=== PATIENT | female | born 1995 | race Caucasian/White ===

== ENCOUNTER 2021-03-09 14:14 | Emergency (ER) | payer MEDICAID, SELFPAY ==
--- NOTE | ~2021-03-09 | XR_ITS ---
EXAMINATION: THORACIC AND LUMBAR SPINE CLINICAL INFORMATION: Status post OD found at gas station with back pain COMPARISON: None TECHNIQUE: Thoracic spine 3 views. Lumbar spine 3 views. FINDINGS: DORSAL SPINE: There is normal thoracic kyphosis. The vertebral heights, alignment and disc heights are normal. There is no visible acute fracture, dislocation or lytic process seen. The paravertebral soft tissues are normal. LUMBAR SPINE: There is normal lumbar lordosis. There is grade 1 retrolisthesis L4-L5. Rest the vertebral alignment is normal. The vertebral heights and disc heights are normal. There is no visible acute fracture, dislocation or lytic process. The paravertebral soft tissues are normal. SI joints are symmetrical and normal. XR/XR thoracic spine 3V IMPRESSION: Unremarkable dorsal spine exam. Grade 1 retrolisthesis L4 over L5. No visible acute fracture or dislocation seen.
--- NOTE | ~2021-03-09 | XR_ITS ---
EXAMINATION: THORACIC AND LUMBAR SPINE CLINICAL INFORMATION: Status post OD found at gas station with back pain COMPARISON: None TECHNIQUE: Thoracic spine 3 views. Lumbar spine 3 views. FINDINGS: DORSAL SPINE: There is normal thoracic kyphosis. The vertebral heights, alignment and disc heights are normal. There is no visible acute fracture, dislocation or lytic process seen. The paravertebral soft tissues are normal. LUMBAR SPINE: There is normal lumbar lordosis. There is grade 1 retrolisthesis L4-L5. Rest the vertebral alignment is normal. The vertebral heights and disc heights are normal. There is no visible acute fracture, dislocation or lytic process. The paravertebral soft tissues are normal. SI joints are symmetrical and normal. XR/XR lumbar spine 2-3V IMPRESSION: Unremarkable dorsal spine exam. Grade 1 retrolisthesis L4 over L5. No visible acute fracture or dislocation seen.
--- NOTE | ~2021-03-09 | XR_ITS ---
EXAMINATION: XR CHEST CLINICAL INFORMATION: Overdose. COMPARISON: None TECHNIQUE: Frontal view of the chest was obtained. 8:34 PM FINDINGS: No significant abnormality is noted involving the heart, lungs, mediastinum, bony thorax or soft tissues. XR/XR chest 1V IMPRESSION: Unremarkable examination.
--- NOTE | ~2021-03-09 | CT_ITS ---
EXAMINATION: NONCONTRAST HEAD CT NONCONTRAST MAXILLOFACIAL CT NONCONTRAST CERVICAL SPINE CT INDICATION INFORMATION: Head injury with loss of consciousness. COMPARISON: No similar priors. TECHNIQUE: Separate noncontrast CT examinations of the head, maxillofacial bones, and cervical spine were performed. Coronal and sagittal images were created for each examination at the technologist workstation. This CT examination was performed using dose optimization techniques as appropriate, variously including the following: *Automated exposure control *Adjustment of mA and/or kV according to patient size (this includes techniques or standardized protocols for targeted exams where dose is matched to indication/reason for exam; i.e. extremities or head) *Use of iterative reconstruction technique DLP: 225 mGy-cm FINDINGS: Head: There is no evidence of acute intracranial hemorrhage or territorial infarction. No abnormal mass effect or midline shift is seen. Banks to white matter differentiation is well preserved. No extra-axial fluid collections are identified. No hydrocephalus. No significant volume loss. There is no abnormal attenuation within the brain parenchyma. No acute soft tissue abnormality. No calvarial fracture. The mastoid air cells are well aerated. Maxillofacial: No acute maxillofacial fractures are seen. The frontal, maxillary, ethmoid, and sphenoid sinuses are well aerated. The uncinate process is normal bilaterally. The infundibula and middle meati are patent. The nasal septum is midline. The palatine tonsils are prominent. The mandibular heads are well-seated in the condylar fossa. The orbits demonstrate a normal appearance bilaterally. The globes are intact, and there are no suspicious findings to suggest retrobulbar hemorrhage. Cervical spine: There is anatomic alignment of the vertebral bodies and posterior elements. The atlantoaxial and atlantooccipital articulations are intact. Vertebral body heights and intervertebral disc spaces are maintained. No evidence of acute fracture. No prevertebral soft tissue swelling. Visualized portions of the lung apices are unremarkable. The thyroid gland is unremarkable. CT/CT cervical spine wo con IMPRESSION: No acute intracranial abnormalities. No acute maxillofacial fractures. No acute cervical spinal fractures or malalignment. Enlarged palatine tonsils, correlate clinically for tonsillitis.
[2021-03-09 14:35] VITALS: BP 160/120; PULSE 84; O2SAT 99
[2021-03-09] MEDS: Acetaminophen 325 MG TABLET 975 MG PO (15:01)
[2021-03-09] MEDS: Ondansetron ODT 4 MG TAB.RAPDIS TRANSLINGU ×2 (15:01→23:14)
[2021-03-09 15:03] VITALS: BP 138/100; PULSE 84; RESP 16; TEMP 37.1; O2SAT 98; BMI 20.7
[2021-03-09 15:24] VITALS: BP 138/100; PULSE 84; RESP 16; TEMP 37.1; O2SAT 98
--- NOTE | 2021-03-09 15:27 | ED_ITS ---
HPI - Overdose General Chief Complaint: Overdose Stated Complaint: OD,NARCAN GIVEN BY [facility] W/GOOD RESULT Time Seen by Provider: 03/09/21 14:39 Source: patient and EMS Mode of arrival: EMS Limitations: other (Poor historian) History of Present Illness HPI Narrative: 25-year-old male presenting to the ED via EMS after he was found face down in a gas station prior to arrival from IV heroin overdose he did receive 4 mg of nasal Narcan with good affect. He reports that he use approximately 3 bags of IV heroin earlier. He reports that he has been in detox/recovery over 8 times. He has never been admitted in the psychiatric unit. He reports that he only uses approximately once a month and he usually uses 3 bags of heroin IV when he does use although he has never overdosed in his life. At this time he is alert and oriented at this time. Actively dry heaving. He knows where he is. He is requesting to call his mother. He denies any SI/HI/auditory visual hallucinations or thoughts of self-injury. He reports that he is not interested in detox although he is willing to speak to chief engineer drilling and recovery therefore will place a consult here. He denies any other complaints or concerns at this time. Continues to ask for water peer complaint: accidental overdose Onset (ago): minute(s) (Prior to arrive) Timing confirmed by: other (Bystander) How Overdose Was Discovered: other (Bystander at gas station) Context: Accidental Overdose: wanted to get high Treatments Prior to Arrival: other (4 mg of nasal Narcan) Related Data Allergies Allergy/AdvReac Type Severity Reaction Status Date / Time No Known Allergies Allergy Verified 03/09/21 14:39 Review of Systems Review of Systems: Constitutional : No Fever, No Chills ENT/Mouth : No Ear Pain, No Nasal Congestion, No sore throat Eyes: No Eye Pain, No Swelling, No Redness Cardiovascular : No Chest Pain, No SOB Respiratory : No Cough, No Sputum, No Dyspnea Gastrointestinal : No ingestions, No Nausea, No Vomiting, No Diarrhea, No Hematochezia, No Melena Genitourinary : No Dysuria, No Urinary Frequency, No Hematuria Musculoskeletal : No Myalgias Skin : No Skin Lesions, No rash Neuro : No Weakness, No Numbness, No Paresthesias, No Dizziness, No Headache Psych : No Anxiety, No Depression, No SI/HI, No AVH, No thoughts of self injury Heme/Lymph: No Lymphadenopathy Endocrine : No Polyuria, No Polydipsia Yes all other systems are reviewed and are negative [facility] Past Medical History Attestation statement: The following information was validated with the patient. Social History Social History Advance Directives: No Advance Directives Information Provided: Yes Physical Exam Vital Signs: Vital Signs: Last Vital Signs Temp 98.7 F 03/09/21 15:24 Pulse 84 03/09/21 15:24 Resp 16 03/09/21 15:24 BP 138/100 H 03/09/21 15:24 Pulse Ox 98 03/09/21 15:24 BMI result Body Mass Index 20.7 vital signs have been reviewed as normal and appeared to be correct. Blood pressure 138/100. Heart rate normal. Respiration rate normal. Temperature normal. Oxygen saturation normal. Appearance: Alert. Oriented X3. No acute distress. Head: Normal external exam. Normocephalic. Atraumatic. No Hernandez signs noted. No raccoon eyes noted Eyes: PERRLA. EOMI. Conjunctiva and sclera normal. Eyelids normal. ENT: EAC normal. TM's Normal. No septal hematoma noted. No hemo tamponade noted. Pharynx normal. Uvula midline. Moist mucous membranes. No trismus noted. No drooling noted. No muffled voice noted. Neck: Normal inspection. Neck supple. FROM. No adenopathy. Thyroid Normal. No meningeal signs. No neck mass noted. CVS: Normal heart rate and rhythm. Heart sound normal. No murmurs noted. Pulses normal throughout. Respiratory: No respiratory distress. Painless inspiration. Breath sounds normal. No wheezes/rales/rhonchi noted. Chest nontender. No accessory muscle usage noted or decreased air movement noted. No signs of trauma. Not consistent with flail chest. No ecchymosis/abrasion/lacerations or abnormaliti es noted Abdomen: Soft and nontender. Bowel sounds normal in all 4 quadrants. No distention noted. No organomegaly noted. No visible injury noted. Back: Full range of motion noted. No signs of trauma. Nontender. No step- offs or deformities are noted. Patient is neuro intact bilateral and this an all 4 extremities. Reflexes intact bilateral and this an offer extremities. No rashes/lesion/induration/fluctuance/ecchymosis/lacerations/abrasions or signs of infection noted Skin: Skin warm and dry. Normal skin color. Normal skin turgor. No rashes/lesions/lacerations noted. Extremities: Extremities exhibit normal range of motion. Extremities nontender. Neuro: Oriented X 3. No motor deficit. No sensory deficit. Reflexes normal. Psych: Appearance grossly normal, well-kept, mental status normal, speech and movement normal, speech clear, normal affect. Is cooperative. Normal thought process. Normal thought content. Normal good insight. Judgment good. Course Reevaluation(s) Reevaluation #1: - CT scan of brain/cervical spine/facial bones and lumbar spine x-ray/thoracic spine within normal limits no acute processes are noted - awaiting labs at this time - patient had an evaluation by the care team and patient was requesting to be discharged with Narcan. He does not want detox but is open to rehab so care team Anna Marie Shah reported that she will see if the chief engineer drilling and recovery can meet with the patient. Will continue to monitor. Sign out to MONTRELL Singh pending above. I ready placed in order so the patient can receive Narcan upon discharge Time: 17:55 MDM - Overdose MDM Narrative Medical decision making narrative: 14:45pm - 25-year-old male presenting to the ED via EMS after he was found face down in a gas station prior to arrival from IV heroin overdose he did receive 4 mg of nasal Narcan with good affect. Reports he uses once a month usually only 3 bags of IV heroin usually. He has never overdosed. Has been in rehab/detox over 8 time. He has never been in a psychiatric rehabilitation unit. He denies any SI/HI/auditory visual hallucinations or thoughts of self-injury. He is alert and oriented x3. Mildly hypertensive at 138/100 otherwise all other vitals are within normal limits. No acute distress at this time. Normal steady gait. No focal neural deficits are noted lungs clear to auscultation. CV RRR. Abdomen is soft and nontender. No signs of trauma noted throughout the patient's entire body. At this time will provide Zofran due to the patient is complaining of nausea/dry heaving, 975 mg of Tylenol, CT scan of brain/cervical spine/facial bones, x-ray of back, EKG, labs and on care team consult for possible detox although patient declining detox although will hear what care team will offer per patient then re-evaluate Medical Records Attestation: I reviewed the patient's medical records. Lab Data Attestation: I reviewed the patient's lab results. Result diagrams: 03/09/21 17:11 03/09/21 17:11 Labs: Lab Results 03/09/21 Range/Units 17:11 WBC 26.6 H (4.8-10.8) X10*3/uL RBC 4.93 (4.20-5.50) X10*6/uL Hgb 14.9 (12.0-16.0) g/dl Hct 45.1 (37.0-47.0) % MCV 91.5 (80.0-98.0) fL MCH 30.2 (27.0-33.0) pg MCHC 33.0 (31.0-35.0) g/dl RDW 13.2 (11.0-16.0) % Plt Count 315 (160-400) X10*3/uL MPV 9.6 (9.4-12.3) fL Immature Gran % (Auto) 1.0 H (0.0-0.4) % Neut % (Auto) 89.0 H (45-73) % Lymph % (Auto) 3.6 L (20-40) % Fleming % (Auto) 6.2 (2-11) % Eos % (Auto) 0.0 (0-4) % Baso % (Auto) 0.2 (0-2) % Lymph # (Auto) 1.0 L (1.2-4.9) X10*3/uL Fleming # (Auto) 1.7 H (0.1-1.2) X10*3/uL Eos # (Auto) 0.0 (0.0-0.4) X10*3/uL Baso # (Auto) 0.0 (0.0-0.2) X10*3/uL Abs Immat Gran (auto) 0.26 H (0.00-0.03) X10*3/uL Absolute Neuts (auto) 23.7 H (2.0-8.3) x10*3/uL Absolute Nucleated RBC 0.000 (0.0-0.012) X10*3/uL Nucleated RBC % (auto) 0.0 (0.0-0.2) /100WBC Imaging Data Lumbar spine/thoracic x-ray: Attestation: I personally reviewed and interpreted this imaging study as follows: Radiologist's impression: FINDINGS: DORSAL SPINE: There is normal thoracic kyphosis. The vertebral heights, alignment and disc heights are normal. There is no visible acute fracture, dislocation or lytic process seen. The paravertebral soft tissues are normal. LUMBAR SPINE: There is normal lumbar lordosis. There is grade 1 retrolisthesis L4-L5. Rest the vertebral alignment is normal. The vertebral heights and disc heights are normal. There is no visible acute fracture, dislocation or lytic process. The paravertebral soft tissues are normal. SI joints are symmetrical and normal.? XR/XR thoracic spine 3V IMPRESSION: Unremarkable dorsal spine exam. ? Grade 1 retrolisthesis L4 over L5. No visible acute fracture or dislocation seen. CT scan of brain/facial bones/cervical spine without contrast: Attestation: I personally reviewed and interpreted this imaging study as follows: Radiologist's impression: FINDINGS: Head: There is no evidence of acute intracranial hemorrhage or territorial infarction. No abnormal mass effect or midline shift is seen. Banks to white matter differentiation is well preserved. No extra-axial fluid collections are identified. No hydrocephalus. No significant volume loss. There is no abnormal attenuation within the brain parenchyma. No acute soft tissue abnormality. No calvarial fracture. The mastoid air cells are well aerated. Maxillofacial: No acute maxillofacial fractures are seen. The frontal, maxillary, ethmoid, and sphenoid sinuses are well aerated. The uncinate process is normal bilaterally. The infundibula and middle meati are patent. The nasal septum is midline. The palatine tonsils are prominent. The mandibular heads are well-seated in the condylar fossa. The orbits demonstrate a normal appearance bilaterally. The globes are intact, and there are no suspicious findings to suggest retrobulbar hemorrhage. Cervical spine: There is anatomic alignment of the vertebral bodies and posterior elements. The atlantoaxial and atlantooccipital articulations are intact. Vertebral body heights and intervertebral disc spaces are maintained.? No evidence of acute fracture. No prevertebral soft tissue swelling. Visualized portions of the lung apices are unremarkable. The thyroid gland is unremarkable. CT/CT head/brain wo con IMPRESSION: No acute intracranial abnormalities. ? No acute maxillofacial fractures. ? No acute cervical spinal fractures or malalignment. ? Enlarged palatine tonsils, correlate clinically for tonsillitis. Discharge Plan Discharge Clinical Impression: Accidental heroin overdose Patient Disposition: Still a Patient
--- NOTE | 2021-03-09 17:27 | HO.SUDE ---
CARE Team met with pt to offer SUDE. Pt reported that he started using heroin at the age of 18-19. He has had about 8 admissions for treatment with varying degrees of success. He reports his longest period of sobriety is just over a year. His father has a history of ETOH use disorder and one of his paternal uncles has history of cocaine use. Pt reports he has depression and anxiety, however, he does not currently have outpt providers. He also reports that his mother and sister have depression. Pt is not interested in detox, but says he is interested in going to rehab. He does have access to narcan. CARE Team will make the appropriate referrals for pt.
[2021-03-09 17:58] LABS: Basophils Percent Auto 0.2 % (0-2); Hematocrit 45.1 % (37.0-47.0); Hemoglobin 14.9 g/dl (12.0-16.0); Imm Gran Abs Auto 0.26 X10*3/uL (0.00-0.03); Lymphocytes Percent Auto 3.6 % (20-40); MANUAL DIFF FLAG SCAN; Mean Corpuscular Hemoglobin 30.2 pg (27.0-33.0); Mean Corpuscular Volume 91.5 fL (80.0-98.0); Mean Platelet Volume 9.6 fL (9.4-12.3); Monocytes Absolute Auto 1.7 X10*3/uL (0.1-1.2); Monocytes Percent Auto 6.2 % (2-11); Neutrophils Absolute Auto 23.7 x10*3/uL (2.0-8.3); Platelet Count 315 X10*3/uL (160-400); Red Blood Count 4.93 X10*6/uL (4.20-5.50); Red Cell Distribution Width 13.2 % (11.0-16.0); SCAN SMEAR FLAG 1; White Blood Count 26.6 X10*3/uL (4.8-10.8)
[2021-03-09 18:17] LABS: COVID-19 Test Negative (Negative)
[2021-03-09 18:21] LABS: SLIDE REVIEW VERIFIED
--- NOTE | 2021-03-09 21:00 | MHC.RECOVSUP ---
? Reason for consult: Recovery Support o ? ? ?Current location: ?[facility] ? ? ?Identified substance use concern: ?Heroine - Overdose Support ? ?Intervention: o Community resources provided o Harm reduction discussion ? Plan: o Referral to [facility] ? Additional information:?I was able to connect with Pt. and review harm reduction strategies and offered community resours
--- NOTE | 2021-03-09 21:02 | MHC.RECOVSUP ---
? Reason for consult: Recovery Support o ? ? ?Current location: ?[facility] ? ? ?Identified substance use concern: ?Heroine - Overdose - Support ? ?Intervention: o Community resources provided o Harm reduction discussion ? Plan: o Referral to [facility] ? Additional information: I was able to connect with Pt. and review harm reduction strategies and suggested community resources. Pt. was receptive although wasn't interested in detox, he was open minded to out patient treatment and Narcotics Anonymous. I supported with mentoring and positive affirmations.?
--- NOTE | 2021-03-09 23:25 | PC.NURSE ---
pt is constantly getting oob, grabs water guzzles water and then throws up. pt was given zofran sl as per emar.
[2021-03-09] MEDS: Naloxone HCl Nasal TAKE HOME 4 MG SPRAY NOSTRILALT (23:40)
== END 2021-03-10 | disposition home or self-care (01) ==
PROVIDERS: Physician Assistant Medical; Emergency Provider Internal Medicine; PCP Nurse Practitioner Family
DX: R40.4 Transient alteration of awareness (principal); T40.1X1A Poisoning by heroin, accidental (unintentional), initial encounter; Y92.524 Gas station as the place of occurrence of the external cause; Z20.822 Contact with and (suspected) exposure to COVID-19
CPT/HCPCS: 36415; 70450; 70486; 71045; 72072; 72100; 72125; 85025; 87635; 99283; 99284